=== PATIENT | female | born 1975 | race Caucasian/White ===

== ENCOUNTER 2017-08-05 08:08 | Emergency (ER) | payer SELFPAY ==
--- NOTE | ~2017-08-05 | ER ---
PATIENT'S NAME: [facility] AGE: 42 Y [address] ROOM: [place] [address] LOCATION: ED ADMIT DATE: 08/05/2017 ER/Outpatient Report DISCHARGE DATE: 08/05/2017 FAMILY PHYSICIAN: DINORAH MERCHANT ATTENDING PHYSICIAN: Melissa Shaw Time of Arrival: 0808 hours. Time of Evaluation/Seen: 0820 hours. IDENTIFICATION: A 42-year-old female. CHIEF COMPLAINT: Right lower abdominal pain. HISTORY OF PRESENT ILLNESS: The patient is a 42-year-old female, since yesterday has had period down in her right pelvis. She had onset of menses yesterday which is one week early. She describes this as a constant right lower quadrant pain, sharp and pulsating pain, worse with walking or movement, and associated with nausea. No vomiting. No diarrhea or constipation. No blood in her stools. No fever or chills. No dysuria. Last menstrual period started yesterday. She is usually regular. She had a tubal ligation 15 years ago. She is a G4, P3, and normal spontaneous vaginal delivery x3. Spontaneous AB1 female. She has a history of ovarian cyst. She has had this feels a little bit different in that this is constant pain. PAST MEDICAL HISTORY: ALLERGIES: NO KNOWN DRUG ALLERGIES. MEDICATIONS: No current medications. MEDICAL PROBLEMS: Ovarian cyst. PAST SURGICAL HISTORY: Prior Surgeries: Tubal ligation and a tubal on the right. SOCIAL HISTORY: The patient lives here in [place]. She is . Tobacco use, six cigarettes per day for 18 years. Alcohol use, occasional. Drug use, denies. PATIENT'S NAME: [facility] AGE: 42 Y [address] ROOM: [place] [address] LOCATION: [facility] ADMIT DATE: 08/05/2017 ER/Outpatient Report DISCHARGE DATE: 08/05/2017 FAMILY PHYSICIAN: DINORAH MERCHANT ATTENDING PHYSICIAN: Melissa Shaw REVIEW OF SYSTEMS: All systems were reviewed and negative other than what is noted in the HPI. FAMILY HISTORY: No pertinent family history identified. No family history of colon problems. No inflammatory bowel disease. PHYSICAL EXAMINATION: VITAL SIGNS: Height 5 feet 7 inches and weight 60.4 kg. Blood pressure 122/56, pulse 84, respiratory rate is 20, temperature 97.0, and saturations 99% on room air. GENERAL: A 42-year-old female, in mild distress but rating her pain 10/10. HEENT: Unremarkable. LUNGS: Clear to auscultation. HEART: Regular rate and rhythm. No murmur, rub, or gallop. ABDOMEN: Bowel sounds present. Soft, nondistended, and nontender except the very low right lower quadrant pain. No rebound or guarding. It is below McBurney's point. EXTREMITIES: No edema. Good distal pulses. NEUROLOGIC: No focal deficit. No CVA tenderness. LABORATORY DATA AND IMAGING STUDIES: UA is negative. Urine-hCG is negative. Chemistry panel, amylase, and lipase are normal. CBC is normal. Pelvic ultrasound; normal uterus, normal endometrium, normal right ovary, normal left ovary, and no free fluid. Normal pelvic ultrasound. CT scan, stone protocol, negative abdomen, and negative pelvis. No findings of appendicitis. The patient was given fentanyl for pain. Her pain improved from a 10 to a 6. IMPRESSION: Pelvic pain of uncertain etiology. PLAN: Rest. No heavy lifting. Tylenol or Advil for pain. [place] 5/325, 1 p.o. q.4- 6 hours p.r.n. severe pain, dispensed 15 with 0 refills. Stool softener. Colace 100 mg b.i.d., push fluids, and follow up with her physician of choice. She is going to go to [facility] as she has no personal physician. MELISSA SHAW MD CAR/modl PATIENT'S NAME: JENARO LEE [facility] AGE: 42 Y [address] ROOM: [place], [place] [address] LOCATION: ED ADMIT DATE: 08/05/2017 ER/Outpatient Report DISCHARGE DATE: 08/05/2017 FAMILY PHYSICIAN: PHYSICIAN, NO ATTENDING PHYSICIAN: Melissa Shaw /[id number] d: 08/05/17 1424 t: 08/08/17 0856, OUTPATIENT REPORT
[2017-08-05 08:53] LABS: BASOPHIL % 0.4 %; EOSINOPHIL # 0.2 K/uL (0.0-0.5); EOSINOPHIL % 3.1 %; HEMOGLOBIN 13.1 g/dL (10.0-15.0); IMMATURE GRANULOCYTE % 0.2 %; LYMPHOCYTE # 2.2 K/uL (0.8-4.0); LYMPHOCYTE % 40.3 %; MCH 33.9 pg (27.0-34.0); MCHC 35.4 gm/dL (32.0-36.5); MCV 95.9 fl (83.0-98.0); MONOCYTE # 0.4 K/uL (0.0-1.0); MONOCYTE % 6.9 %; MPV 10.4 fl (9.4-12.4); NEUTROPHIL # (ANC) 2.7 K/uL (1.8-7.8); NEUTROPHIL % 49.1 %; NRBC % 0 /100WBC (0-0.00); PLATELET COUNT 182 K/uL (150-450); RBC 3.86 M/uL (3.50-5.50); WBC 5.5 K/uL (4.0-11.0)
[2017-08-05 08:58] LABS: BILIRUBIN URINE NEGATIVE (NEGATIVE); BLOOD URINE 150 /UL (NEGATIVE); COLOR URINE YELLOW (YELLOW); GLUCOSE URINE NEGATIVE (NEGATIVE); KETONE URINE NEGATIVE (NEGATIVE); LEUKOCYTES URINE 25 /UL (NEGATIVE); NITRITE URINE NEGATIVE (NEGATIVE); PROTEIN URINE NEGATIVE (NEGATIVE); TURBIDITY URINE CLEAR (CLEAR); UROBILINOGEN URINE NORMAL (NORMAL)
[2017-08-05 09:05] LABS: ALBUMIN 3.5 gm/dL (3.5-5.0); ALK PHOS 43 IU/L (33-138); ALT 14 IU/L (12-78); ANION GAP 10.2 (10.0-19.0); AST 10 IU/L (10-40); BLOOD UREA NITROGEN 15 mg/dL (6-24); CALCIUM 8.6 mg/dL (8.5-10.5); CHLORIDE 110 mMol/L (96-110); CO2 26 mMol/L (22-32); CREATININE 0.7 mg/dL (0.5-1.1); POTASSIUM 4.2 mMol/L (3.7-5.1); SODIUM 142 mMol/L (135-145); TOTAL BILIRUBIN 0.5 mg/dL (0.0-1.5); TOTAL PROTEIN 6.7 g/dL (6.0-8.4)
[2017-08-05 09:08] LABS: BACTERIA URINE NEGATIVE (NEGATIVE); EPITHELIAL URINE RARE #/HPF (NEGATIVE); RBC URINE RARE #/HPF (NEGATIVE); WBC URINE RARE #/HPF (NEGATIVE)
== END 2017-08-05 10:33 | disposition disaster alternative care site (69) ==
LOC: GMED 08:08
PROVIDERS: Family Medicine
DX: R10.2 Pelvic and perineal pain (principal); R10.31 Right lower quadrant pain; Z98.51 Tubal ligation status
CPT/HCPCS: J2405; J3010